=== PATIENT | female | born 2000 | race Caucasian/White ===

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

== ENCOUNTER 2025-03-20 20:59 | Emergency (ER) | payer OTHER, SELFPAY ==
--- NOTE | ~2025-03-20 | XR_ITS ---
CLINICAL HISTORY: pain, injury 2 view right tibia-fibula Comparison: None Findings No displaced fracture of the imaged right tibia or imaged right fibula. No dislocation of the imaged knee or imaged ankle. Question mild degenerative change of the imaged ankle. Soft tissue prominence is nonspecific. Mild edema and cellulitis considered. No radiopaque retained foreign body. IMPRESSION: 1. No displaced fracture of the right tibia or of the right fibula. 2. No dislocation of the imaged knee or imaged ankle. This document has been electronically signed by: Riaz Ahumada MD on 03/20/2025 23:59:09
--- NOTE | ~2025-03-20 | XR_ITS ---
CLINICAL HISTORY: pain, injury 2 view right knee Comparison: None Findings: No displaced fracture or dislocation by two-view radiograph. Moderate effusion present. No radiopaque retained foreign body. IMPRESSION: 1. Moderate effusion present. 2. No displaced fracture or dislocation. This document has been electronically signed by: Riaz Ahumada MD on 03/20/2025 23:57:32
[2025-03-20 21:20] VITALS: BP 138/99; PULSE 92; RESP 20; TEMP 36.4; O2SAT 97; BMI 43.3
--- NOTE | 2025-03-20 22:35 | ED_ITS ---
HPI - Extremity Problem General Chief complaint: Extremity Problem Stated complaint: R hip/knee pain Time Seen by Provider: 03/20/25 22:34 Source: patient Mode of arrival: wheelchair Limitations: no limitations History of Present Illness ED Provider: angela vickers np HPI Narrative: Patient is a 25-year-old female who presents emergency department for evaluation. At approximately 19:30 this evening she was at wrestling practice, she had ran from 1 side of the ring and attempted to swing her body in between to ropes on the opposing side of the ring she lost her balance ultimately landing on to the right tib-fib (knee flexed to 180 degrees in beneath her with weight of body on top of it. She has not taken any OTC analgesia not applied any ice. She was able to shuffling her way to the car but had notable pain with weight-bearing. She denies numbness or tingling or cold sensation to the foot. There was no head strike or loss of consciousness with this fall. Pain is primarily localized to the inferior knee and proximal tib-fib Related Data Home Medications ?Medication ?Instructions ?Recorded ?Confirmed gabapentin 300 mg capsule 300 mg PO DAILY 10/21/20 10/22/20 Previous Rx's ?Medication ?Instructions ?Recorded hydrochlorothiazide 12.5 mg capsule 12.5 mg PO DAILY #30 caps 10/26/20 cholecalciferol (vitamin D3) 125 125 mcg PO DAILY #30 caps 11/25/20 mcg (5,000 unit) capsule mecobalamin (vitamin B12) 1,000 1,000 mcg sublingual DAILY #30 tabs 11/25/20 mcg disintegrating tablet,sublingual cephalexin 500 mg capsule 500 mg PO QID 7 days #28 caps 12/16/20 doxycycline hyclate 100 mg capsule 100 mg PO BID 10 days #20 caps 12/16/20 hydrocodone 5 mg-acetaminophen 325 1 tab PO Q8H PRN pain, severe 3 12/16/20 mg tablet days #9 tabs oxycodone 5 mg tablet 5 mg PO Q8H PRN pain #5 tabs 12/18/20 Allergies Allergy/AdvReac Type Severity Reaction Status Date / Time clavulanic acid Allergy Mild RASH Verified 03/20/25 21:22 [From AUGMENTIN] Review of Systems Review of Systems: Yes all other systems are reviewed and are negative PMFSH Past Medical History Attestation statement: The following information was validated with the patient. Source: old records reviewed Medical History Pilonidal abscess Herniated intervertebral disc of lumbar spine Hypersomnolence Anxiety Depression GERD (gastroesophageal reflux disease) BMI 38.0-38.9,adult Obesity Surgical History History of surgery on arm Family History Family History Mother Anxiety Depressed Obesity Father Depressed Anxiety Sleep apnea Sister Anxiety Hypertension ADHD Social History Social History Alcohol intake: never Substance Use Type: Marijuana Advance Directives: No Advance Directives Information Provided: No Physical Exam Vital Signs: Vital Signs: Last Vital Signs Temp 97.6 F 03/20/25 21:20 Pulse 92 03/20/25 21:20 Resp 20 03/20/25 21:20 BP 138/99 H 03/20/25 21:20 Pulse Ox 97 03/20/25 21:20 O2 Del Method Room Air 03/20/25 21:20 BMI result Body Mass Index 43.3 Appearance: Alert.?Oriented to person, place and time. No acute distress.?Normal affect.? CVS: Heart sounds normal. Normal heart rate and rhythm.? Pulses normal.?? Respiratory: No respiratory distress.? Lung sounds clear to auscultation bilaterally?? Skin: Skin warm and dry.? Normal skin color.? ? Extremities: No lower extremity edema.? No calf ttp. Developing ecchymosis to the proximal tib-fib primarily along lateral aspect with palpable tenderness. No obvious deformity to the right knee. No effusion. No laxity on examination. 2+ DP/PT pulse Neuro: Moves all extremities spontaneously. Sensation intact bilaterally. Medications Administered Discontinued Medications Generic Name Dose Route Start Last Admin Trade Name Freq PRN Reason Stop Dose Admin Ibuprofen 600 mg 03/20/25 22:49 03/20/25 23:18 Ibuprofen 600 Mg Tablet PO 03/20/25 22:50 600 mg ONCE ONE Administration Medical Decision Making Medical Decision Making MDM Narrative: Patient is a 25-year-old female who presents emergency department for evaluation of right inferior knee/proximal tib-fib pain s/p injury as per HPI. Extremity is neurovascularly intact distally. No apparent deformity. There is developing ecchymosis and tenderness upon palpation primarily to the proximal lateral portion of the lower extremity. No apparent effusion. XR imaging was obtained to exclude fracture/dislocation, reveals no acute fracture dislocation, there is however presence of an effusion. Received ibuprofen for analgesia. advised conservative treatment, elastic wrap placed to right knee, given knee immobilizer and crutches with instruction for outpatient follow-up with or[facility] k[facility]. Differential Diagnosis Differential Diagnoses: The differential diagnosis associated with the presentation includes (See narrative above) Independent Interpretation I performed an independent interpretation of an: Plain X-Ray (See narrative above) Radiology Impression Discussion of test interpretation with radiology: I have reviewed the radiologist's reading. Radiologist Impression: 2 view right knee Comparison: None Findings: No displaced fracture or dislocation by two-view radiograph. Moderate effusion present. No radiopaque retained foreign body. IMPRESSION: 1. Moderate effusion present. 2. No displaced fracture or dislocation. 2 view right tibia-fibula Comparison: None Findings No displaced fracture of the imaged right tibia or imaged right fibula. No dislocation of the imaged knee or imaged ankle. Question mild degenerative change of the imaged ankle. Soft tissue prominence is nonspecific. Mild edema and cellulitis considered. No radiopaque retained foreign body. IMPRESSION: 1. No displaced fracture of the right tibia or of the right fibula. 2. No dislocation of the imaged knee or imaged ankle. Independent Historian Clinical information obtained from an independent historian. History obtained from or confirmed by: Spouse Prescription Management I considered prescription management with: Pain Medication Discharge Plan Discharge Clinical Impression: Knee sprain Qualifiers: Encounter type: initial encounter Laterality: right Instructions: Knee Sprain (ED), P.R.I.C.E. Treatment (ED), How to Use an Elastic Bandage (ED), Crutch Instructions (ED) Additional Instructions: X-ray imaging does not show fracture dislocation to the knee or the bones in the lower leg. You do have what is known as an effusion, fluid buildup within the joint space likely secondary to the injury. Be sure to rest over the next few days. Apply ice for 10-15 minutes 4-6 times daily. Use elastic bandage as provided for compression, the knee immobilizer at all times when weight-bearing. You may put weight on the leg only as tolerated, you have been provided with crutches additionally. When resting, elevate your leg above the level of your chest. You can take ibuprofen 200 mg, 3 tablets (600mg) every 6-8 hours as needed for pain, in addition to Tylenol 500 mg, 2 tablets (1,000mg) every 4-6 hours as needed for pain, but not to exceed 3 doses daily (3,000mg).? Follow-up with [facility]. I have provided contact information for the orthopedic office that is associated with our hospital, they will not contact you directly you will need to contact them for further follow-up. Prescriptions: No Action hydrochlorothiazide 12.5 mg capsule 12.5 mg PO DAILY Qty: 30 2RF cholecalciferol (vitamin D3) 125 mcg (5,000 unit) capsule 125 mcg PO DAILY Qty: 30 2RF mecobalamin (vitamin B12) 1,000 mcg tablet,disintegrating 1,000 mcg sublingual DAILY Qty: 30 2RF Rx Instructions: place tablet under tongue and allow to dissolve for at least30 secs before swallowing oxycodone 5 mg tablet 5 mg PO Q8H PRN (Reason: pain) Qty: 5 0RF doxycycline hyclate 100 mg capsule 100 mg PO BID 10 Days Qty: 20 0RF cephalexin 500 mg capsule 500 mg PO QID 7 Days Qty: 28 0RF hydrocodone-acetaminophen 5-325 mg tablet 1 tab PO Q8H PRN (Reason: pain, severe) 3 Days Qty: 9 0RF gabapentin 300 mg capsule 300 mg PO DAILY Referrals: [facility] [place] Orth[facility] Surgeons [Provider Group] Hanna Zheng NP [Primary Care Provider] - Print Language: Chinese
[2025-03-20] MEDS: Ibuprofen 600 MG TABLET PO (23:18)
[2025-03-21 01:02] VITALS: BP 136/89; PULSE 88; RESP 18; TEMP 36.7; O2SAT 99
[2025-03-21 01:09] VITALS: BP 112/66; PULSE 74; RESP 18; TEMP 36.6; O2SAT 97
== END 2025-03-21 01:11 | disposition home or self-care (01) ==
PROVIDERS: Emergency Provider Emergency Medicine; PCP Family Medicine
DX: S83.91XA Sprain of unspecified site of right knee, initial encounter (principal); X58.XXXA Exposure to other specified factors, initial encounter; Y93.9 Activity, unspecified; Y92.9 Unspecified place or not applicable; Y99.8 Other external cause status; Z79.899 Other long term (current) drug therapy
CPT/HCPCS: 73560; 73590; 99283

== ENCOUNTER → 2025-03-20 22:49 | Outpatient (BNV) | payer OTHER, SELFPAY | PROVIDERS: Emergency Provider Emergency Medicine; PCP Family Medicine; Visit Provider Radiology Neuroradiology | DX: M25.461 Effusion, right knee (principal); M25.561 Pain in right knee; S89.91XA Unspecified injury of right lower leg, initial encounter | CPT/HCPCS: 73560; 73590 ==

== ENCOUNTER 2025-03-24 08:34 | Outpatient (REF) | payer OTHER, SELFPAY ==
--- NOTE | ~2025-03-24 | XR_ITS ---
EXAMINATION: XR KNEE 1 VIEW RIGHT HISTORY: M25.561 - Pain in right knee COMPARISON: Correlation is made with the prior examination dated 03/20/2025. FINDINGS: A single sunrise patellar view of the right knee are submitted. Osseous mineralization is normal. No fracture or dislocation is seen. The joint space is maintained. The soft tissues are unremarkable. XR/XR knee RT 1V IMPRESSION: Unremarkable single sunrise patellar view of the right knee. Electronically signed by: Chalo Garvey MD 03/24/2025 01:37 PM EDT
--- OUTSIDE RECORDS SUMMARY | 2025-03-25 08:57 | XMS_ITS | Clinical Summary ---
Author Organization [address] [place] [address] [place] [phone] Phone Care Team Providers Care Mattress Renovator Name Role Phone Physician, Pcp Unknown Primary [...] patient's age to complete this topic Insurance [facility] Care Teams Mattress Renovator Relationship Specialty Start Date End Date Physician, Pcp Unknown PCP - General 10/08/24
== END 2025-03-24 08:35 | disposition home or self-care (01) ==
LOC: HO.HOSX 08:34
PROVIDERS: Visit Provider Physician Assistant
DX: M25.861 Other specified joint disorders, right knee (principal); T14.8XXA Other injury of unspecified body region, initial encounter
CPT/HCPCS: 73560

== ENCOUNTER 2025-03-24 09:45 | Outpatient (AMB) | payer OTHER, SELFPAY ==
--- NOTE | 2025-03-24 10:06 | MHC.OFFVIS ---
Vital Signs 03/24/25 10:16 Height 5 ft 5 in Weight 260 lb BMI 43.3 Intake Visit Reasons: ER f/u R knee sprain DOI 03/20/25 Intake Note: Bindu is a 25 year old female who presents for an ER follow up of right knee injury, DOI 03/20/25. Patient sustained a knee injury at wrestling practice, when she attempted to dive out of the ring, she slammed her knee against a metal post. Patient was seen at [facility] ER that same day where x-rays were taken, placed in a knee immobilizer and referred to orthopedics. Today patient reports her pain has moved to below her knee towards her ocampo area. States discomfort in immobilizer as it keeps sliding down. She has been out of work since her injury. Allergies clavulanic acid [From AUGMENTIN] Allergy (Mild, Verified 03/24/25 10:08) RASH fluoxetine [From Prozac] Allergy (Verified 03/24/25 10:08) suicidal thoughts latex sensitive Allergy (Uncoded 03/24/25 10:08) hives, rash Medication List - Last Reconciled 03/24/25 by Barbie Arriaga PA-C escitalopram oxalate 10 mg PO DAILY hydroxyzine HCl 25 mg PO QID HPI HPI ER f/u R knee sprain DOI 03/20/25: Details: 25 yo female presents to the office today for an injury to her Right lower ext on 03/20/25. She states during wrestling practice she was doing a drill where she was climbing on the rope and as she went to grab the rope she milled and her leg slammed into the metal post on the ring. She states she sat out for a bit and rest, she was seen in the ED the same day, xrays obtained and placed in a knee immobilizer and referred to our office for ortho eval. She states since her DOI, she has less knee pain and the pain is located more along the lateral aspect of the proximal tibia. 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 He has full range of motion. No tenderness to palpation around the knee joint. She does have bruising along the lateral proximal aspect of the tibia with tenderness to palpation. Neurovascularly intact. Results Reviewed Results Reviewed: Xrays were obtained in the office today and personally reviewed by me of the right knee negative for any acute or chronic abnormalities. Assessment & Plan Assessment & Plan (1) Patellofemoral dysfunction of right knee: Code(s): M25.861 - Other specified joint disorders, right knee Category: Medical (2) Contusion of bone: Code(s): T14.8XXA - Other injury of unspecified body region, initial encounter Category: Medical Plan I recommend a course of physical therapy to work on strengthening and conditioning exercises of the lower extremity. I did place her in a tall boot she can weightbear as tolerated to help absorb impact while recovering from her bone bruise. I did explain this can take up to 3 months for full resolution of symptoms. Any type of activity that she perform causing pain to that area should be modified until pain-free. She was given a note for no wrestling for 3 months. She was also given a work note to avoid stairs and limit pushing pulling carrying objects greater than 5 lb. No driving. These work restrictions should be in place for 12 weeks. She will see me back if there is any questions or concerns otherwise follow up as needed. Orders: Orders XR knee RT 1V Today M25.561 - Pain in right knee PT Evaluation and Treatment Today M25.861 - Other specified joint disorders, right knee, T14.8XXA - Other injury of unspecified body region, initial encounter Coding Level of Care Code New Pt Level 3 (80611) Complex EM visit Add On G2211 Diagnoses Patellofemoral dysfunction of right knee M25.861 Contusion of bone T14.8XXA
[2025-03-24 10:16] VITALS: BMI 43.3
--- OUTSIDE RECORDS SUMMARY | 2025-03-24 10:28 | XMS_ITS | Clinical Summary ---
Author Organization [address] [place] [address] [place] [phone] Phone Care Team Providers Care Automotive Service Assistant Name Role Phone Physician, Pcp Unknown Primary Care Provider Connie vailable Allergies No known active allergies Social History Tobacco Use Types Packs/Day Years Used Date Smoking Tobacco: Never Assessed Comments Unknown Sex and Gender Information Value Date Recorded Sex Assigned at Not on file Legal Sex Female 10:07 AM EST Gender Identity Not on file Sexual Orientation Not on file Last Filed Vital Signs Vital Sign Reading Time Taken Comments Blood Pressure 105/78 10/08/2024 1:27 PM EST Pulse 94 10/08/2024 1:27 PM EST Temperature 36.4 ??C (97.6 ??F) 10/08/2024 1:27 PM ES T Respiratory Rate - - Oxygen Saturation 98% 10/08/2024 1:27 PM EST Inhaled Oxygen Concentration - - Weight - - Height - - Body Mass Index - - Plan of Treatment Health Maintenance Due Date Last Done Comments Gonorrhea/Chlamydia Screening 2002 Pneumococcal Vaccine: Pediatrics (0 to 5 Years) and At-Risk Patients (6 to 64 Years) (1 of 1 - PPSV23) 01/10/2008 07/16/2003, 2002, 2002, Additional history exists Meningococcal B Vaccine (2 of 2 - Trumenba SCDM 2-dose series) 01/13/2021 07/16/2020 Cervical Cancer Screening: Pap Smear 2023 DTaP,Tdap,and Td Vaccines (7 - Td or Tdap) 04/16/2023 04/16/2013, 01/15/2007, 07/16/2003, Additional history exists COVID-19 Vaccine (5 - season) 2024 09/28/2022, 11/02/2021, 01/18/2021, Additional history exists Cholesterol Screening (Lipid Panel) 10/08/2024 Depression Screening 10/08/2024 HIV Screening 10/08/2024 Hepatitis C Screening 10/08/2024 Social Influencers of Health Screening 10/08/2024 Influenza Vaccine (Season Ended) 2025 08/20/2021, 07/16/2020, 10/05/2018, Additional history exists Hepatitis B Vaccines Completed 2002, 2002, 2002 HIB Vaccines Completed 04/14/2003, 06/24, 2002, Additional history exists MMR Vaccines Completed 01/11/2006, 04/14/2003 IPV Vaccines Completed 01/15/2007, 06/24, 2002, Additional history exists Varicella Vaccines Completed 01/15/2007, 01/10/2003 Hepatitis A Vaccines Completed 06/22/2011, 05/14/20 10 HPV Vaccines Completed 06/16/2015, 06/11/2014 Meningococcal ACWY Vaccine Completed 10/05/2018, RSV Immunization Patients Under 20 months Aged Out No longer eligible based on patient's age to complete this topic Insurance [facility] Care Teams Automotive Service Assistant Relationship Specialty Start Date End Date Physician, Pcp Unknown PCP - General 10/08/24
== END 2025-03-24 11:01 | disposition home or self-care (01) ==
LOC: HO.HOS 09:46
PROVIDERS: PCP Family Medicine; Visit Provider Physician Assistant
DX: M25.861 Other specified joint disorders, right knee (principal); T14.8XXA Other injury of unspecified body region, initial encounter
CPT/HCPCS: 99203

== ENCOUNTER → 2025-03-24 09:47 | Outpatient (BNV) | payer OTHER, SELFPAY | PROVIDERS: Visit Provider Radiology Diagnostic Radiology | DX: M25.561 Pain in right knee (principal) | CPT/HCPCS: 73560 ==